=== PATIENT | male | born 1960 | race Caucasian/White ===

== ENCOUNTER 2018-10-04 17:52 | Emergency (ER) | payer MEDICAID ==
--- NOTE | 2018-10-04 18:16 | EDM.PDOC ---
ED HPI GENERAL MEDICAL PROBLEM - General Chief Complaint: Laceration Stated Complaint: VIA NORTH/FELL Time Seen by Provider: 10/04/18 17:59 Source of Information: Reports: Patient, RN Notes Reviewed History Limitations: Reports: No Limitations - History of Present Illness INITIAL COMMENTS - FREE TEXT/NARRATIVE: 58-year-old gentleman brought in by EMS services he does admit to consuming alcohol today he had a fall at home on his deck he is not sure exactly what happened he is experiencing facial pain he believes he probably had a loss of consciousness but cannot recall the details there is no nausea no vomiting complaints and no other pain - Related Data Allergies Allergy/AdvReac Type Severity Reaction Status Date / Time No Known Allergies Allergy Verified 07/16/18 11:22 Home Meds: Home Meds Albuterol [Ventolin HFA] 2 puff INH Q4H PRN 07/16/18 [History] Amphetamine/Dextroamphetamine [Adderall XR] 20 mg PO DAILY 07/16/18 [History] Azelastine [Astelin Nasal Soln] 1 spray CHUY BID 07/16/18 [History] Cetirizine [ZyrTEC] 1 tab PO BID 07/16/18 [History] Fluticasone Furoate [Arnuity Ellipta] 1 puff INH DAILY 07/16/18 [History] Folic Acid 20 mg PO DAILY 07/16/18 [History] Ibuprofen 200 mg PO Q6H PRN 07/16/18 [History] Losartan Potassium [Cozaar] 50 mg PO DAILY 07/16/18 [History] Mirtazapine [Remeron] 1 tab PO DAILY 07/16/18 [History] Montelukast [Singulair] 1 tab PO DAILY 07/16/18 [History] Multivitamin with Minerals [Multiple Vitamin] 1 tab PO DAILY 07/16/18 [History] Pyridoxine HCl (Vitamin B6) [Pyridoxine HCl] 50 mg PO DAILY 07/16/18 [History] Thiamine [Vitamin B-1] 100 mg PO DAILY 07/16/18 [History] Triamcinolone Aceton/0.9% NaCl [Triamcinolone Acet 50 mg/ml Vl] 2 spray CHUY DAILY 07/16/18 [History] Venlafaxine [Effexor XR] 1 cap PO DAILY 07/16/18 [History] Vitamin B Complex [B Complex] 1 tab PO DAILY 07/16/18 [History] busPIRone HCl [Buspirone HCl] 1 tab PO BID 07/16/18 [History] hydroCHLOROthiazide [Hydrochlorothiazide] 1 tab PO DAILY 07/16/18 [History] traZODone 1.5 tab PO DAILY 07/16/18 [History] Past Medical History Psychiatric History: Reports: Addiction, Anxiety Social & Family History - Tobacco Use Smoking Status *Q: Unknown Ever Smoked - Caffeine Use Caffeine Use: Reports: Coffee, Soda - Recreational Drug Use Recreational Drug Use: No ED ROS GENERAL - Review of Systems Review Of Systems: See Below Constitutional: Reports: No Symptoms HEENT: Reports: Other (Facial pain) Respiratory: Reports: No Symptoms Cardiovascular: Reports: No Symptoms GI/Abdominal: Reports: No Symptoms : Reports: No Symptoms Musculoskeletal: Reports: No Symptoms Skin: Reports: No Symptoms ED EXAM, SKIN/RASH Exam: See Below Text/Narrative:: Primary survey, obvious intoxication GCS of 15 airway is open patent and clear lungs are clear to auscultation bilaterally and cardiovascular demonstrates a regular rate and rhythm S1-S2 Secondary surveyGeneral: Male, not in any distress, alert and oriented x3 HEENT: head is 2 cm lacerations appreciated above the right fine there is also superficial abrasion anterior to the right ear normocephalic, eyes pupils equal round reactive to light, sclera clear no conjunctivitis appreciated, extraocular eye movements intact. Ears tympanic membranes clear and marroquin landmarks and light reflex are present bilaterally canals are clear. Nose no septal deviation, nares are clear, no blood present. Mouth mucosa is moist and pink no erythema or exudate noted in soft palate, tongue is midline uvula is midline, dentition is intact. Neck: Supple no thyromegaly no tracheal deviation. NO posterior midline C-spine tenderness Positive for evidence of intoxication GCS > 14 No focal neurological deficit NO distracting injury Nodes: Cervical nodes subclavicular nodes nontender no palpable lymphadenopathy noted. Lungs: clear to auscultation bilaterally with symmetrical respirations, no adventitious noise appreciated. CV: Regular rate and rhythm S1 and S2 appreciated no murmurs rubs or gallops noted. Abdomen: Soft, nontender, no palpable masses or organomegaly appreciated, no distention no guarding bowel sounds are present. Neuro: GCS 15 Skin: Warm and dry, intact Extremities: No lower extremity edema appreciated, no tenderness shoulders elbows wrists bilaterally pelvic rock is negative no tenderness to knees or ankles bilaterally. ED SKIN PROCEDURES - Laceration/Wound Repair Right Face Lac/Wound length In cm: 1.5 Appearance: Subcutaneous, Linear Distal NVT: Neuro & Vascular Intact, No Tendon Injury Anesthetic Type: Local Local Anesthesia - Lidocaine (Xylocaine): 1% with EPI Local Anesthetic Volume: 1cc Skin Prep: Saline Saline Irrigation (cc's): 60 Exploration/Debridement/Repair: Wound Explored, In a Bloodless Field, Explored to Base Closed with: Sutures Suture Size: other (5-0) # of Sutures: 1 Suture Type: Prolene, Running Suture Size: other (5-0) # of Sutures: 1 Repaired with: Vicryl Sterile Dressing Applied: Nurse Tetanus Status Addressed: Yes Complications: No Course - Vital Signs Last Recorded V/S: Last Vital Signs Temp 97.6 F 10/04/18 18:05 Pulse 99 10/04/18 18:05 Resp 22 H 10/04/18 18:05 BP 135/84 10/04/18 18:05 Pulse Ox 94 L 10/04/18 18:05 - Orders/Labs/Meds Orders: Active Orders 24 hr Category Date Time Status Max Facial Sinus wo Cont [CT] Stat Exams 10/04/18 18:11 Taken Meds: Medications Discontinued Medications Generic Name Dose Route Start Last Admin Trade Name Freq PRN Reason Stop Dose Admin Bacitracin 1 dose 10/04/18 18:45 10/04/18 18:58 Bacitracin Oint 1 Gm TOP 10/04/18 18:46 1 dose ONETIME ONE Administration Lidocaine/Epinephrine 20 ml 10/04/18 18:45 10/04/18 18:58 Xylocaine 1% With Epinephrine 1:100,000 SUBCUT 10/04/18 18:46 20 ml NOW STA Administration Departure - Departure Time of Disposition: 19:45 Disposition: Home, Self-Care 01 Condition: Fair Clinical Impression: Eyebrow laceration Qualifiers: Encounter type: initial encounter Laterality: right Qualified Code(s): S01.111A - Laceration without foreign body of right eyelid and periocular area, initial encounter Head injury Qualifiers: Encounter type: initial encounter Qualified Code(s): S09.90XA - Unspecified injury of head, initial encounter - Discharge Information Referrals: Elizabeth Meyers PA-C [Primary Care Provider] - Forms: ED Department Discharge Additional Instructions: Suture removal in 3-4 days follow-up primary care return to the emergency department follow wound care instruction sheet - My Orders Last 24 Hours: My Active Orders 10/04/18 18:11 Max Facial Sinus wo Cont [CT] Stat - Assessment/Plan Last 24 Hours: My Active Orders 10/04/18 18:11 Max Facial Sinus wo Cont [CT] Stat Plan: Assessment Acuity = acute Site and laterality = 1.5 cm laceration above the eyebrow completely through the dermis, 1 cm laceration right side of cheek Etiology = status post trauma Manifestations = none Location of injury = Home Lab values = CT scan had maxillofacial bones and neck negative for any fracture Plan Suture removal in 3-4 days follow-up primary care return to the emergency department follow wound care instruction sheet This note was dictated using [employer] voice recognition software please call with any questions on syntax or grammar.
[2018-10-04] MEDS ORDERED: Bacitracin Oint 1 GM U/D Packet TOP ONE (18:45)
[2018-10-04] MEDS ORDERED: Lidocaine 1% with EPINEPHrine 1:100,000 50 ML MDV SUBCUT STA (18:45)
--- NOTE | 2018-10-04 19:32 | CRLCT ---
INDICATION: Trauma TECHNIQUE: CT head without contrast. COMPARISON: None. FINDINGS: CSF spaces: Within normal limits for age. Brain parenchyma: The marroquin-white differentiation is normal. No sign of mass, hemorrhage, or midline shift. Skull base and calvarium: No skull fractures. Frontal scalp hematoma. Atherosclerosis. IMPRESSION: Frontal scalp hematoma without evidence of calvarial fracture or intracranial bleed. Please note that all CT scans at this facility use dose modulation, iterative reconstruction, and/or weight-based dosing when appropriate to reduce radiation dose to as low as reasonably achievable. Dictated by Randal Taylor MD @ Oct 04 2018 7:27PM Signed by Dr. Randal Taylor @ Oct 04 2018 7:31PM
--- NOTE | 2018-10-04 19:40 | CRLCT ---
INDICATION: Trauma TECHNIQUE: CT cervical spine without contrast. COMPARISON: None FINDINGS: Vertebrae: Alignment is normal. There are no fractures or suspicious bony lesions. Discs and facet joints: Facet hypertrophy C2-3 without significant stenosis. Facet hypertrophy C3-4 with mild right foraminal stenosis. Facet hypertrophy C4-5 without significant stenosis. Disc space narrowing, posterior osteophytes and facet hypertrophy at C5-6 with mild right foraminal stenosis. Facet hypertrophy C6-7 without significant stenosis. Facet hypertrophy C7-T1 without significant stenosis. Extraspinal findings: Prevertebral soft tissues, visualized airway, and visualized lungs are unremarkable. IMPRESSION: Multilevel degenerative disc disease without evidence of cervical spine fracture. Please note that all CT scans at this facility use dose modulation, iterative reconstruction, and/or weight-based dosing when appropriate to reduce radiation dose to as low as reasonably achievable. Dictated by Randal Taylor MD @ Oct 04 2018 7:27PM Signed by Dr. Randal Taylor @ Oct 04 2018 7:40PM
--- NOTE | 2018-10-04 19:45 | CRLCT ---
INDICATION: Facial injury TECHNIQUE: CT maxillofacial without contrast. COMPARISON: None FINDINGS: Facial bones: No evidence of fracture. Orbits and globes: Unremarkable. Globes are intact. No sign of intraorbital hemorrhage or emphysema. Sinuses: Trace mucosal thickening paranasal sinuses. Soft tissues: Frontal scalp hematoma with small subcutaneous air consistent with a scalp laceration. IMPRESSION: Frontal scalp hematoma without evidence of facial fracture. Please note that all CT scans at this facility use dose modulation, iterative reconstruction, and/or weight-based dosing when appropriate to reduce radiation dose to as low as reasonably achievable. Dictated by Randal Taylor MD @ Oct 04 2018 7:27PM Signed by Dr. Randal Taylor @ Oct 04 2018 7:42PM
== END 2018-10-04 19:50 | disposition home or self-care (01) ==
LOC: JP.ED 17:52
DX: S01.111A Laceration without foreign body of right eyelid and periocular area, initial encounter (principal); S01.411A Laceration without foreign body of right cheek and temporomandibular area, initial encounter; Z79.899 Other long term (current) drug therapy; W19.XXXA Unspecified fall, initial encounter; Y92.009 Unspecified place in unspecified non-institutional (private) residence as the place of occurrence of the external cause
CPT/HCPCS: 12011; 70450; 70486; 72125; 99283-25

== ENCOUNTER 2018-10-08 18:16 | Emergency (ER) | payer MEDICAID ==
--- NOTE | 2018-10-08 18:58 | EDM.PDOC ---
ED HPI GENERAL MEDICAL PROBLEM - General Chief Complaint: Wound Recheck Stated Complaint: REMOVE STITCHES Time Seen by Provider: 10/08/18 18:45 Source of Information: Reports: Patient, Old Records History Limitations: Reports: No Limitations - History of Present Illness INITIAL COMMENTS - FREE TEXT/NARRATIVE: 58 yo male had stitches placed in his face here on Thursday. Here now for suture removal. Has no concerns. Onset: Sudden Onset Date: 10/04/18 Duration: Day(s):, Improving Location: Reports: Face Quality: Reports: Other (no pain) Severity: Mild Improves with: Reports: Other (time) Worsens with: Reports: None Context: Reports: Trauma Associated Symptoms: Reports: No Other Symptoms Treatments FORGING ENGINEER: Reports: Other (see below) (neosporin) - Related Data Allergies Allergy/AdvReac Type Severity Reaction Status Date / Time No Known Allergies Allergy Verified 10/08/18 18:40 Home Meds: Home Meds Albuterol [Ventolin HFA] 2 puff INH Q4H PRN 07/16/18 [History] Amphetamine/Dextroamphetamine [Adderall XR] 20 mg PO DAILY 07/16/18 [History] Azelastine [Astelin Nasal Soln] 1 spray CHUY BID 07/16/18 [History] Cetirizine [ZyrTEC] 1 tab PO BID 07/16/18 [History] Fluticasone Furoate [Arnuity Ellipta] 1 puff INH DAILY 07/16/18 [History] Folic Acid 20 mg PO DAILY 07/16/18 [History] Ibuprofen 200 mg PO Q6H PRN 07/16/18 [History] Losartan Potassium [Cozaar] 50 mg PO DAILY 07/16/18 [History] Mirtazapine [Remeron] 1 tab PO DAILY 07/16/18 [History] Montelukast [Singulair] 1 tab PO DAILY 07/16/18 [History] Multivitamin with Minerals [Multiple Vitamin] 1 tab PO DAILY 07/16/18 [History] Pyridoxine HCl (Vitamin B6) [Pyridoxine HCl] 50 mg PO DAILY 07/16/18 [History] Thiamine [Vitamin B-1] 100 mg PO DAILY 07/16/18 [History] Triamcinolone Aceton/0.9% NaCl [Triamcinolone Acet 50 mg/ml Vl] 2 spray CHUY DAILY 07/16/18 [History] Venlafaxine [Effexor XR] 1 cap PO DAILY 07/16/18 [History] Vitamin B Complex [B Complex] 1 tab PO DAILY 07/16/18 [History] busPIRone HCl [Buspirone HCl] 1 tab PO BID 07/16/18 [History] hydroCHLOROthiazide [Hydrochlorothiazide] 1 tab PO DAILY 07/16/18 [History] traZODone 1.5 tab PO DAILY 07/16/18 [History] Past Medical History - Past Health History Medical/Surgical History: Denies Medical/Surgical History Respiratory History: Reports: Asthma Psychiatric History: Reports: Addiction, Anxiety Social & Family History - Tobacco Use Smoking Status *Q: Former Smoker Years of Tobacco use: 10 Packs/Tins Daily: 0.5 Used Tobacco, but Quit: Yes Month/Year Tobacco Last Used: 10 years ago Second Hand Smoke Exposure: No - Caffeine Use Caffeine Use: Reports: Coffee Other Caffeine Use: 4 to 6 cups per day - Recreational Drug Use Recreational Drug Use: No ED ROS GENERAL - Review of Systems Review Of Systems: See Below Constitutional: Reports: No Symptoms Skin: Reports: Wound (healing normally) Neurological: Reports: No Symptoms ED EXAM, SKIN/RASH Exam: See Below Exam Limited By: No Limitations General Appearance: Alert, WD/WN, No Apparent Distress Eye Exam: Bilateral Eye: Normal Inspection, PERRL Ears: Hearing Grossly Normal Nose: Normal Inspection, No Blood Throat/Mouth: Normal Voice, No Airway Compromise Neurological: Alert, Oriented, CN II-XII Intact, Normal Cognition, No Motor/ Sensory Deficits Psychiatric: Normal Affect, Normal Mood Skin: Warm, Dry, Normal Color, No Rash, Wound/Incision (Adequate healing for suture removal) Location, Skin: Face (R side in front of ear and to L cheek below the eye) Characteristics: Linear Associated features: No: Warmth, Tenderness, Swelling, Induration, Lymphangitis ED WOUND PROCEDURES - Additional/Other Procedure(s) Other (Free Text) Procedure(s): Sutures removed with suture removal kit. Course - Vital Signs Last Recorded V/S: Last Vital Signs Temp 37.2 C 10/08/18 18:40 Pulse 92 10/08/18 18:40 Resp 16 10/08/18 18:40 BP 149/100 H 10/08/18 18:40 Pulse Ox 99 10/08/18 18:40 Departure - Departure Time of Disposition: 18:57 Disposition: Home, Self-Care 01 Condition: Good Clinical Impression: Visit for suture removal - Discharge Information Referrals: Elizabeth Meyers PA-C [Primary Care Provider] - Additional Instructions: Clean wound twice daily with 1/2 water and 1/2 peroxide. Dry. Apply antibiotic ointment. Recheck as needed.
== END 2018-10-08 19:05 | disposition home or self-care (01) ==
LOC: JP.ED 18:16
DX: S01.111D Laceration without foreign body of right eyelid and periocular area, subsequent encounter (principal); W19.XXXD Unspecified fall, subsequent encounter
CPT/HCPCS: 99281

== ENCOUNTER 2019-12-14 14:09 | Emergency (ER) | payer MEDICAID ==
[2019-12-14] MEDS ORDERED: Ketorolac 60 MG/2 ML SDV IM ONE (15:09)
--- NOTE | 2019-12-14 15:11 | EDM.PDOC ---
<Carmen Winslow - Last Filed: 12/14/19 15:51> ED HPI GENERAL MEDICAL PROBLEM - General Chief Complaint: General Stated Complaint: SENT FROM CLINIC,PATIENT UNSURE WHAT FOR Time Seen by Provider: 12/14/19 15:05 Source of Information: Reports: Patient, Old Records, RN, RN Notes Reviewed History Limitations: Reports: No Limitations - History of Present Illness INITIAL COMMENTS - FREE TEXT/NARRATIVE: Pt here as a recommendation of Toma John for continuance of cervical and vertebral tenderness post CT, MRI, and NIRU's. Pt c/o pain, tingling, sharp, stabbing, and burning pain that comes and goes in BLUE, BLLE, back, and cervical tenderness since August 2019 due to job related injury. Pt is being followed by Elizabeth Meyers PA-C and the pain clinic for steroid injection(s). Pain today is constant at 8/10. Indicates have used Icy Hot patches, ice, Tylenol, and prescribed muscle relaxants. The muscle relaxants are not tolerated by pt as "they knock him out" and he is not able to conduct normal daily activities. Pt indicates the clinic has ordered PT and has been going for 6-7 weeks with no relief. History of head trauma a year ago or so from a fall into a garbage dumpster that required sutures. Unknown complications as pt was not able to recall the event in its entirety. Pt is lying on stretcher in no visual distress and able to give an appropriate history. Onset: Gradual Onset Date: 08/10/19 Duration: Week(s):, Chronic, Getting Worse Location: Reports: Back, Upper Extremity, Left, Upper Extremity, Right (Stingling and weakness), Lower Extremity, Left, Lower Extremity, Right Quality: Reports: Ache, Burning, Sharp (Tingling ), Stabbing Severity: Severe Improves with: Reports: None Worsens with: Reports: None Lower Back Pain Score (Numeric/FACES): 8 - Related Data Allergies Allergy/AdvReac Type Severity Reaction Status Date / Time No Known Allergies Allergy Verified 12/07/19 13:08 Home Meds: Home Meds Albuterol [Ventolin HFA] 2 puff INH Q4H PRN 07/16/18 [History] Amphetamine/Dextroamphetamine [Adderall XR] 20 mg PO DAILY 07/16/18 [History] Azelastine [Astelin Nasal Soln] 1 spray CHUY BID 07/16/18 [History] Cetirizine [ZyrTEC] 1 tab PO BID 07/16/18 [History] Fluticasone Furoate [Arnuity Ellipta] 1 puff INH DAILY 07/16/18 [History] Folic Acid 20 mg PO DAILY 07/16/18 [History] Ibuprofen 200 mg PO Q6H PRN 07/16/18 [History] Losartan Potassium [Cozaar] 50 mg PO DAILY 07/16/18 [History] Mirtazapine [Remeron] 45 tab PO BEDTIME 07/16/18 [History] Montelukast [Singulair] 1 tab PO DAILY 07/16/18 [History] Multivitamin with Minerals [Multiple Vitamin] 1 tab PO DAILY 07/16/18 [History] Triamcinolone Aceton/0.9% NaCl [Triamcinolone Acet 50 mg/ml Vl] 2 spray CHUY DAILY 07/16/18 [History] Vitamin B Complex [B Complex] 1 tab PO DAILY 07/16/18 [History] busPIRone HCl [Buspirone HCl] 30 tab PO BID 07/16/18 [History] hydroCHLOROthiazide [Hydrochlorothiazide] 1 tab PO DAILY 07/16/18 [History] traZODone 1.5 tab PO DAILY 07/16/18 [History] Celecoxib 100 mg PO BID 12/14/19 [History] Cyclobenzaprine [Flexeril] 10 mg PO TID 12/14/19 [History] Fluticasone Furoate [Arnuity Ellipta] 1 puff INH DAILY 12/14/19 [History] Magnesium 400 mg PO BEDTIME PRN 12/14/19 [History] Naltrexone 50 mg PO DAILY 12/14/19 [History] Omeprazole 20 mg PO DAILY 12/14/19 [History] QUEtiapine [SEROquel] 25 mg PO DAILY 12/14/19 [History] Past Medical History - Past Health History Medical/Surgical History: Denies Medical/Surgical History Respiratory History: Reports: Asthma Musculoskeletal History: Reports: Back Pain, Chronic Psychiatric History: Reports: Addiction, Anxiety Social & Family History - Tobacco Use Smoking Status *Q: Never Smoker - Caffeine Use Caffeine Use: Reports: None Other Caffeine Use: 4 to 6 cups per day - Alcohol Use Days Per Week of Alcohol Use: 7 Number of Drinks Per Day: 3 Total Drinks Per Week: 21 - Recreational Drug Use Recreational Drug Use: No ED ROS GENERAL - Review of Systems Review Of Systems: See Below Constitutional: Reports: No Symptoms HEENT: Reports: No Symptoms Respiratory: Reports: No Symptoms Cardiovascular: Reports: No Symptoms Endocrine: Reports: No Symptoms GI/Abdominal: Reports: No Symptoms : Reports: No Symptoms Musculoskeletal: Reports: Other (Low back/pelvis, BLUE and BLLE ) Skin: Reports: No Symptoms Neurological: Reports: Headache, Numbness, Tingling, Difficulty Walking, Weakness Psychiatric: Reports: No Symptoms Hematologic/Lymphatic: Reports: No Symptoms Immunologic: Reports: No Symptoms ED EXAM, GENERAL - Physical Exam Exam: See Below Exam Limited By: No Limitations General Appearance: Alert, Mild Distress Eye Exam: Bilateral Eye: Normal Inspection, PERRL Head: Normocephalic Neck: Normal Inspection, Supple (Cervical tenderness C4-6 preixisting ) Respiratory/Chest: No Respiratory Distress Cardiovascular: Normal Peripheral Pulses, Regular Rate, Rhythm, No Murmur, No Rub Peripheral Pulses: 2+: Radial (L), Radial (R), Posterior Tibial (L), Posterior Tibial (R) GI/Abdominal: Normal Bowel Sounds, Soft, Non-Tender, No Distention (Male) Exam: Deferred Rectal (Males) Exam: Deferred Back Exam: Decreased Range of Motion, Vertebral Tenderness Extremities: Limited Range of Motion (BLUE and BLLE weakness. BLUE 2/5. BLLE 4/5. ) Neurological: Alert, Oriented, Normal Cognition Psychiatric: Normal Affect, Normal Mood Skin Exam: Warm, Dry, Intact, Normal Color, No Rash Lymphatic: No Adenopathy Course - Re-Assessments/Exams Free Text/Narrative Re-Assessment/Exam: 12/14/19 15:14 Examined pt. Motor strength BLUE 2/5 and BLLE 4/5. C/O headache, cervical and vertebral tenderness. PERLL. Will give Toradol IM and scan head CT. 12/14/19 15:41 CT done 12/14/19 15:51 Ct dictated. Neg findings. Departure - Departure Time of Disposition: 15:52 Disposition: Home, Self-Care 01 Condition: Good Clinical Impression: Pain, Acute exacerbation of chronic low back pain - Discharge Information *PRESCRIPTION DRUG MONITORING PROGRAM REVIEWED*: Not Applicable *COPY OF PRESCRIPTION DRUG MONITORING REPORT IN PATIENT ANT: Not Applicable Instructions: How to Use Cold Therapy, Acute Pain, Adult Referrals: Elizabeth Meyers PA-C [Primary Care Provider] - Forms: ED Department Discharge Additional Instructions: The CT of your head was negative for any bleeding or acute changes. Please follow up with the Pain Clinic or Dina Meyers PA-C for further care. Sepsis Event Note (ED) - Evaluation Sepsis Screening Result: No Definite Risk - Problem List Review Problem List Initiated/Reviewed/Updated: Yes - Assessment/Plan Assessment:: The CT of your head was negative for any bleeding or acute changes. Please follow up with the Pain Clinic or Dina Meyers PA-C for further care. <Conrado Escalera - Last Filed: 12/16/19 07:54> Course - Vital Signs Last Recorded V/S: Last Vital Signs Temp 97.2 F 12/14/19 14:36 Pulse 102 H 12/14/19 14:36 Resp 16 12/14/19 14:36 BP 134/83 12/14/19 14:36 Pulse Ox 97 12/14/19 14:36 - Orders/Labs/Meds Meds: Medications Discontinued Medications Generic Name Dose Route Start Last Admin Trade Name Freq PRN Reason Stop Dose Admin Ketorolac Tromethamine 60 mg 12/14/19 15:09 12/14/19 15:16 Toradol IM 12/14/19 15:10 60 mg ONETIME ONE Administration Departure - Departure Time of Disposition: 16:25 Attestation - Student - Attestation Statement Attestation Statement: I personally performed or re-performed the physical examination and medical decision making. I have verified all student documentation or findings, including history, physical exam and/or medical decision making.
--- NOTE | 2019-12-14 15:49 | CT ---
Head wo Cont CLINICAL HISTORY: Upper and lower extremity weakness COMPARISON: 2019 TECHNIQUE: Transverse scans were obtained from the base of the skull through the vertex without IV contrast on a multislice, multidetector CT scanner. Auto dosage reduction and iterative reconstruction techniques employed. FINDINGS: No focal abnormal parenchymal density is identified. There is no mass effect, hemorrhage, or extraaxial collection. The basal cisterns and sulci over the convexities are prominent. The ventricles are prominent. There is a slight increase in size since 2019 IMPRESSION: No focal lesion hemorrhage or mass effect Generalized atrophic changes Mild ventriculomegaly which has increased slightly since 2019. This may represent progression of atrophic changes normal pressure hydrocephalus is not excluded
== END 2019-12-14 16:15 | disposition home or self-care (01) ==
LOC: JP.ED 14:09
DX: M54.5 Low back pain (principal); G89.29 Other chronic pain; J45.909 Unspecified asthma, uncomplicated; F41.9 Anxiety disorder, unspecified; Z79.899 Other long term (current) drug therapy
CPT/HCPCS: 70450; 96372; 99283; J1885

== ENCOUNTER 2021-09-19 09:26 | Day surgery (SDC) | payer MEDICAID ==
[2021-09-19] MEDS ORDERED: Sodium Chloride 0.9% 1,000 ML IV SCH (10:00)
[2021-09-19] MEDS ORDERED: Propofol 200 MG/20 ML SDV ONE ×2 (10:02→10:39)
[2021-09-19] MEDS ORDERED: fentaNYL 100 MCG/2 ML SDV ONE (10:02)
[2021-09-19] MEDS ORDERED: Midazolam 1 MG/ML 2 ML SDV ONE (10:02)
== END 2021-09-19 11:52 | disposition home or self-care (01) ==
LOC: JP.SDS 09:26
PROVIDERS: ATTEND Surgery
DX: Z12.11 Encounter for screening for malignant neoplasm of colon (principal); K57.30 Diverticulosis of large intestine without perforation or abscess without bleeding; K20.90 Esophagitis, unspecified without bleeding; I10 Essential (primary) hypertension
CPT/HCPCS: J2250; J2704; J3010; J7030

== ENCOUNTER 2022-10-16 14:36 | Emergency (ER) | payer MEDICAID ==
[2022-10-16 15:08] LABS: BASOPHILS PERCENT AUTO 0.4 % (0.1-1.3); EOSINOPHILS PERCENT AUTO 0.2 % (0.0-5.4); HEMATOCRIT 40.5 % (38.4-49.7); HEMOGLOBIN 14.4 g/dL (12.9-16.9); IMMATURE GRAN ABSOLUTE AUTO 0.05 K/uL (0.00-0.23); IMMATURE GRAN PERCENT AUTO 0.9 % (0.0-0.7); LYMPHOCYTES ABSOLUTE AUTO 0.94 K/uL (0.8-3.3); LYMPHOCYTES PERCENT AUTO 16.7 % (11.4-47.7); MEAN CORPUSCULAR HEMOGLOBIN 31.6 pg (31.6-35.5); MEAN CORPUSCULAR HGB CONC 35.6 g/dL (31.6-35.5); MEAN CORPUSCULAR VOLUME 88.8 fL (81.4-99.0); MONOCYTES PERCENT AUTO 10.6 % (3.3-12.6); NEUTROPHILS ABSOLUTE AUTO 4.02 K/uL (1.0-7.6); NEUTROPHILS PERCENT AUTO 71.2 % (40.0-78.1); PLATELET COUNT,PLT 111 K/uL (130-375); RED BLOOD CELL COUNT 4.56 M/uL (4.14-5.76); WHITE BLOOD CELL COUNT,WBC 5.6 K/uL (3.2-11.0)
[2022-10-16 15:09] LABS: BASOPHILS ABSOLUTE AUTO 0.02 K/uL (0.00-0.10); EOSINOPHILS ABSOLUTE AUTO 0.01 K/uL (0.00-0.40)
[2022-10-16] MEDS ORDERED: Aspirin 81 MG Tab.Chew PO ONE (15:16)
[2022-10-16 15:30] LABS: PROTHROMBIN TIME 10.4 sec (9.2-10.6)
[2022-10-16] MEDS ORDERED: Sodium Chloride 0.9% 1,000 ML IV SCH (15:30)
[2022-10-16 15:33] LABS: A/G RATIO 0.8 (1.2-2.2); ALANINE AMINOTRANSFERASE,ALT 61 U/L (12-78); ALBUMIN 3.3 g/dL (3.4-5.0); ALKALINE PHOSPHATASE 75 U/L (46-116); ASPARTATE AMNIOTRANSFERASE,AST 86 U/L (15-37); BILIRUBIN TOTAL 0.9 mg/dL (0.2-1.0); BLOOD UREA NITROGEN,BUN 27 mg/dL (7-18); CALCIUM 8.8 mg/dL (8.5-10.1); CARBON DIOXIDE,CO2 26 mmol/L (21-32); CHLORIDE,CL 97 mmol/L (100-108); CREATININE 2.5 mg/dL (0.8-1.3); ESTIMATED GFR 29 mL/min (>60); GLUCOSE RANDOM 156 mg/dL (74-106); MAGNESIUM 2.2 mg/dL (1.8-2.4); POTASSIUM,K 3.8 mmol/L (3.6-5.2); PRO B-TYPE NATRIUR PEPT,BNPPRO 263 pg/mL (5-125); PROTEIN TOTAL,TP 7.3 g/dL (6.4-8.2); SODIUM,NA 132 mmol/L (140-148); TROPONIN I HIGH SENSITIVITY 20.8 pg/mL (<=60.3)
[2022-10-16 15:35] LABS: ANION GAP 12.8 mmol/L (5.0-14.0)
[2022-10-16] MEDS ORDERED: Iopamidol 755 Mg/ML 100 ML Bottle IV ONE (16:12)
[2022-10-16] MEDS ORDERED: Sodium Chloride 0.9% 75 ML IV ONE (16:12)
[2022-10-16] MEDS ORDERED: Sodium Chloride 0.9% 10 ML Syringe FLUSH ONE (16:12)
== END 2022-10-16 18:43 | disposition home or self-care (01) ==
LOC: JP.ED 14:36
DX: I95.89 Other hypotension (principal); E86.1 Hypovolemia; I10 Essential (primary) hypertension; J45.909 Unspecified asthma, uncomplicated; Z79.899 Other long term (current) drug therapy
CPT/HCPCS: 36415; 71045; 71275; 80053; 82947; 83605; 83735; 83880; 84484; 85025; 85379; 85610; 93005; 96360; 96361; 99285; A9270; J3490; J7030; Q9967

== ENCOUNTER 2022-12-05 10:43 | Inpatient (IN) | payer MEDICARE, MEDICAID ==
[2022-12-05] MEDS ORDERED: Sodium Chloride 0.9% 10 ML Syringe FLUSH PRN (13:49)
[2022-12-05 13:57] LABS: BASOPHILS PERCENT AUTO 0.2 % (0.1-1.3); EOSINOPHILS PERCENT AUTO 0.2 % (0.0-5.4); HEMATOCRIT 44.8 % (38.4-49.7); HEMOGLOBIN 15.5 g/dL (12.9-16.9); IMMATURE GRAN ABSOLUTE AUTO 0.05 K/uL (0.00-0.23); IMMATURE GRAN PERCENT AUTO 0.6 % (0.0-0.7); LYMPHOCYTES ABSOLUTE AUTO 1.23 K/uL (0.8-3.3); LYMPHOCYTES PERCENT AUTO 14.5 % (11.4-47.7); MEAN CORPUSCULAR HEMOGLOBIN 31.3 pg (31.6-35.5); MEAN CORPUSCULAR HGB CONC 34.6 g/dL (31.6-35.5); MEAN CORPUSCULAR VOLUME 90.5 fL (81.4-99.0); MONOCYTES ABSOLUTE AUTO 0.77 K/uL (0.20-0.90); MONOCYTES PERCENT AUTO 9.1 % (3.3-12.6); NEUTROPHILS ABSOLUTE AUTO 6.39 K/uL (1.0-7.6); NEUTROPHILS PERCENT AUTO 75.4 % (40.0-78.1); PLATELET COUNT,PLT 225 K/uL (130-375); RED BLOOD CELL COUNT 4.95 M/uL (4.14-5.76); WHITE BLOOD CELL COUNT,WBC 8.5 K/uL (3.2-11.0)
[2022-12-05 13:58] LABS: BASOPHILS ABSOLUTE AUTO 0.02 K/uL (0.00-0.10); EOSINOPHILS ABSOLUTE AUTO 0.02 K/uL (0.00-0.40)
[2022-12-05] MEDS ORDERED: Sodium Chloride 0.9% 1,000 ML IV SCH (14:00)
[2022-12-05 14:19] LABS: ALANINE AMINOTRANSFERASE,ALT 45 U/L (12-78); ALBUMIN 3.7 g/dL (3.4-5.0); ALKALINE PHOSPHATASE 79 U/L (46-116); ASPARTATE AMNIOTRANSFERASE,AST 52 U/L (15-37); BILIRUBIN TOTAL 1.1 mg/dL (0.2-1.0); BLOOD UREA NITROGEN,BUN 28 mg/dL (7-18); CALCIUM 9.6 mg/dL (8.5-10.1); CARBON DIOXIDE,CO2 29 mmol/L (21-32); CHLORIDE,CL 99 mmol/L (100-108); CREATININE 1.2 mg/dL (0.8-1.3); EST CRCL DRUG DOSING (CG) 75.16 mL/min; ESTIMATED GFR 69 mL/min (>60); GLUCOSE RANDOM 106 mg/dL (74-106); POTASSIUM,K 3.5 mmol/L (3.6-5.2); PROTEIN TOTAL,TP 7.5 g/dL (6.4-8.2); SODIUM,NA 138 mmol/L (140-148)
[2022-12-05 14:20] LABS: ANION GAP 13.5 mmol/L (5.0-14.0)
[2022-12-05 14:22] LABS: INR 1.1; PROTHROMBIN TIME 10.7 sec (9.2-10.6); PTT,PARTIAL THROMBOPLSTIN TIME 28.8 sec (21.8-27.3)
[2022-12-05 14:47] LABS: TROPONIN I HIGH SENSITIVITY 42.7 pg/mL (<=60.3)
[2022-12-05] MEDS ORDERED: Ketorolac 30 MG/ML SDV IVPUSH ONE (16:38)
[2022-12-05 17:16] LABS: LYME AB IgG Positive (Negative); LYME AB IgM Positive (Negative)
[2022-12-05] MEDS ORDERED: Doxycycline 100 MG Cap PO ONE (17:44)
[2022-12-05] MEDS ORDERED: Acetaminophen 500 MG Tab PO ONE (17:44)
[2022-12-05 18:53] LABS: APPEARANCE,URINE CLEAR (CLEAR); BILIRUBIN,URINE NEGATIVE (NEGATIVE); COLOR,URINE YELLOW (YELLOW); GLUCOSE,URINE NEGATIVE (NEGATIVE); KETONES,URINE 40 mg/dL (NEGATIVE); LEUKOCYTE ESTERASE,URINE NEGATIVE (NEGATIVE); NITRITE,URINE NEGATIVE (NEGATIVE); OCCULT BLOOD,URINE NEGATIVE (NEGATIVE); PROTEIN,URINE TRACE mg/dL (NEGATIVE); UROBILINOGEN,URINE 0.2 EU/dL (0.2-1.0)
[2022-12-05 18:59] LABS: AMORPHOUS SEDIMENT,URINE NOT SEEN; BACTERIA,URINE RARE; EPITHELIAL CELLS,URINE RARE; MUCUS,URINE NOT SEEN; RBC,URINE NOT SEEN (0-5); WBC,URINE NOT SEEN (0-5)
[2022-12-05 19:00] LABS: AMPHETAMINES SCREEN, URINE NEGATIVE (NEGATIVE); BARBITURATE SCREEN,URINE NEGATIVE (NEGATIVE); BENZODIAZEPINES SCREEN,URINE NEGATIVE (NEGATIVE); METHADONE SCREEN, URINE NEGATIVE (NEGATIVE); METHAMPHETAMINES SCREEN, URINE NEGATIVE (NEGATIVE); OXYCODONE SCREEN,URINE NEGATIVE (NEGATIVE); PROPOXYPHENE SCREEN,URINE NEGATIVE (NEGATIVE); THC SCREEN,URINE 50 NG/ML NEGATIVE (NEGATIVE)
[2022-12-05] MEDS ORDERED: Sennosides/Docusate Sodium 50-8.6 MG Tab PO PRN (20:43)
[2022-12-05] MEDS ORDERED: Ondansetron 4 MG/2 ML SDV IV PRN (20:43)
[2022-12-05] MEDS ORDERED: Nicotine Polacrilex 2 MG Gum CHEW PRN (20:43)
[2022-12-05] MEDS ORDERED: Ondansetron 4 MG Tab.DIS PO PRN (20:43)
[2022-12-05] MEDS ORDERED: cefTRIAXone 2 GM in Sodium Chloride 0.9% 50 ML IV ONE (20:43)
[2022-12-05] MEDS ORDERED: Magnesium Hydroxide 400 MG/5 ML Susp 30 ML Cup PO PRN (20:43)
[2022-12-05] MEDS ORDERED: Melatonin 3 MG Tab PO PRN (20:43)
[2022-12-05] MEDS: Sodium Chloride 0.9% 1,000 ML IV SCH (21:25)
[2022-12-05] MEDS: Tamsulosin 0.4 MG Cap.ER PO SCH (21:28)
[2022-12-05] MEDS: Enoxaparin 40 MG/0.4 ML Syringe SUBCUT SCH (21:28)
[2022-12-05] MEDS: Potassium Chloride 20 MEQ Tab.ER PO SCH (21:28)
[2022-12-05] MEDS: Pantoprazole 40 MG Tab.CR PO SCH (21:28)
[2022-12-05] MEDS: Lactobacillus Rhamnosus GG (Probiotic) Cap PO SCH (21:28)
[2022-12-05] MEDS: busPIRone 10 MG Tab PO SCH ×2 (21:47→21:57)
[2022-12-05] MEDS: Mirtazapine 15 MG Tab PO SCH (21:57)
[2022-12-05] MEDS: Celecoxib 100 MG Cap PO SCH (21:57)
[2022-12-05] MEDS: Cyclobenzaprine 10 MG Tab PO SCH (21:57)
[2022-12-05] MEDS: Cetirizine 10 MG Tab PO SCH (21:57)
[2022-12-05] MEDS: Montelukast 10 MG Tab PO SCH (21:58)
[2022-12-05] MEDS: Doxycycline 100 MG in Sodium Chloride 0.9% 100 ML IV SCH (22:19)
[2022-12-06] MEDS: Losartan 25 MG Tab PO SCH ×2 (00:41→09:12)
[2022-12-06] MEDS: traMADol 50 MG Tab PO PRN ×2 (02:06→18:23)
[2022-12-06 05:09] LABS: HEMATOCRIT 41.9 % (38.4-49.7); HEMOGLOBIN 14.4 g/dL (12.9-16.9); MEAN CORPUSCULAR HEMOGLOBIN 31.4 pg (31.6-35.5); MEAN CORPUSCULAR HGB CONC 34.4 g/dL (31.6-35.5); MEAN CORPUSCULAR VOLUME 91.3 fL (81.4-99.0); RED BLOOD CELL COUNT 4.59 M/uL (4.14-5.76); WHITE BLOOD CELL COUNT,WBC 11.3 K/uL (3.2-11.0)
[2022-12-06 05:28] LABS: CALCIUM 8.2 mg/dL (8.5-10.1); CREATININE 0.9 mg/dL (0.8-1.3); EST CRCL DRUG DOSING (CG) 100.21 mL/min; POTASSIUM,K 3.9 mmol/L (3.6-5.2)
[2022-12-06 05:29] LABS: ANION GAP 13.9 mmol/L (5.0-14.0)
[2022-12-06] MEDS: Sodium Chloride 0.9% 1,000 ML IV SCH (05:39)
[2022-12-06] MEDS ORDERED: QUERCETIN DIHYDRATE 1 GM PO SCH (09:00)
[2022-12-06] MEDS ORDERED: Pregabalin 75 MG Cap PO SCH (09:00)
[2022-12-06] MEDS ORDERED: QUEtiapine 25 MG Tab PO SCH (09:00)
[2022-12-06] MEDS: busPIRone 10 MG Tab PO SCH ×2 (09:11→21:04)
[2022-12-06] MEDS: Celecoxib 100 MG Cap PO SCH ×2 (09:12→21:05)
[2022-12-06] MEDS: Lactobacillus Rhamnosus GG (Probiotic) Cap PO SCH ×2 (09:15→21:05)
[2022-12-06] MEDS: Folic Acid 1 MG Tab PO SCH (09:16)
[2022-12-06] MEDS: Cyclobenzaprine 10 MG Tab PO SCH ×2 (09:16→21:04)
[2022-12-06] MEDS: Cetirizine 10 MG Tab PO SCH ×2 (09:17→21:07)
[2022-12-06] MEDS: Atenolol 25 MG Tab PO SCH (09:17)
[2022-12-06] MEDS: Doxycycline 100 MG in Sodium Chloride 0.9% 100 ML IV SCH ×2 (10:56→21:00)
[2022-12-06] MEDS ORDERED: Albuterol 0.083% 2.5 MG/3 ML Neb Soln NEB PRN (15:20)
[2022-12-06] MEDS: Acetaminophen 325 MG Tab PO PRN (18:23)
[2022-12-06] MEDS: Pregabalin 75 MG Cap PO SCH (21:04)
[2022-12-06] MEDS: Tamsulosin 0.4 MG Cap.ER PO SCH (21:04)
[2022-12-06] MEDS: Potassium Chloride 20 MEQ Tab.ER PO SCH (21:05)
[2022-12-06] MEDS: Enoxaparin 40 MG/0.4 ML Syringe SUBCUT SCH (21:05)
[2022-12-06] MEDS: QUEtiapine 25 MG Tab PO SCH (21:06)
[2022-12-06] MEDS: Montelukast 10 MG Tab PO SCH (21:06)
[2022-12-06] MEDS: Mirtazapine 15 MG Tab PO SCH (21:07)
[2022-12-06] MEDS: Pantoprazole 40 MG Tab.CR PO SCH (21:07)
[2022-12-07] MEDS: Pregabalin 75 MG Cap PO SCH ×2 (08:38→21:26)
[2022-12-07] MEDS: Cyclobenzaprine 10 MG Tab PO SCH ×2 (08:39→21:21)
[2022-12-07] MEDS: Losartan 25 MG Tab PO SCH (08:40)
[2022-12-07] MEDS: busPIRone 10 MG Tab PO SCH ×2 (08:40→21:21)
[2022-12-07] MEDS: Celecoxib 100 MG Cap PO SCH ×2 (08:40→21:21)
[2022-12-07] MEDS: Lactobacillus Rhamnosus GG (Probiotic) Cap PO SCH ×2 (08:40→21:21)
[2022-12-07] MEDS: Folic Acid 1 MG Tab PO SCH (08:43)
[2022-12-07] MEDS: QUEtiapine 25 MG Tab PO SCH ×2 (08:43→21:24)
[2022-12-07] MEDS: [UNRECOGNIZED DRUG - OTHER] PO SCH (08:44)
[2022-12-07] MEDS: Cetirizine 10 MG Tab PO SCH ×2 (08:44→21:22)
[2022-12-07] MEDS: Atenolol 25 MG Tab PO SCH (08:44)
[2022-12-07] MEDS: Doxycycline 100 MG in Sodium Chloride 0.9% 100 ML IV SCH ×2 (08:45→21:29)
[2022-12-07] MEDS ORDERED: QUEtiapine 25 MG Tab PO SCH (09:00)
[2022-12-07] MEDS ORDERED: Sodium Chloride 0.9% 10 ML Syringe FLUSH STA (10:04)
[2022-12-07] MEDS ORDERED: Iopamidol 755 Mg/ML 100 ML Bottle IV STA (10:04)
[2022-12-07] MEDS ORDERED: Sodium Chloride 0.9% 100 ML IV STA (10:04)
[2022-12-07] MEDS: Montelukast 10 MG Tab PO SCH (21:22)
[2022-12-07] MEDS: Tamsulosin 0.4 MG Cap.ER PO SCH (21:22)
[2022-12-07] MEDS: Enoxaparin 40 MG/0.4 ML Syringe SUBCUT SCH (21:22)
[2022-12-07] MEDS: Mirtazapine 15 MG Tab PO SCH (21:22)
[2022-12-07] MEDS: Potassium Chloride 20 MEQ Tab.ER PO SCH (21:23)
[2022-12-07] MEDS: Pantoprazole 40 MG Tab.CR PO SCH (21:23)
[2022-12-08] MEDS: traMADol 50 MG Tab PO PRN (01:30)
[2022-12-08 05:43] LABS: HEMATOCRIT 39.3 % (38.4-49.7); HEMOGLOBIN 13.7 g/dL (12.9-16.9); MEAN CORPUSCULAR HEMOGLOBIN 31.2 pg (31.6-35.5); MEAN CORPUSCULAR HGB CONC 34.9 g/dL (31.6-35.5); MEAN CORPUSCULAR VOLUME 89.5 fL (81.4-99.0); RED BLOOD CELL COUNT 4.39 M/uL (4.14-5.76); WHITE BLOOD CELL COUNT,WBC 5.6 K/uL (3.2-11.0)
[2022-12-08 06:01] LABS: A/G RATIO 0.9 (1.2-2.2); ALANINE AMINOTRANSFERASE,ALT 47 U/L (12-78); ALBUMIN 2.9 g/dL (3.4-5.0); ALKALINE PHOSPHATASE 60 U/L (46-116); ASPARTATE AMNIOTRANSFERASE,AST 46 U/L (15-37); BILIRUBIN TOTAL 0.6 mg/dL (0.2-1.0); BLOOD UREA NITROGEN,BUN 20 mg/dL (7-18); C-REACTIVE PROTEIN 5.17 mg/dL (0.0-0.3); CALCIUM 8.5 mg/dL (8.5-10.1); CARBON DIOXIDE,CO2 24 mmol/L (21-32); CHLORIDE,CL 103 mmol/L (100-108); CREATININE 0.8 mg/dL (0.8-1.3); EST CRCL DRUG DOSING (CG) 112.74 mL/min; ESTIMATED GFR 101 mL/min (>60); GLUCOSE RANDOM 105 mg/dL (74-106); POTASSIUM,K 3.6 mmol/L (3.6-5.2); PROTEIN TOTAL,TP 6.3 g/dL (6.4-8.2); SODIUM,NA 137 mmol/L (140-148)
[2022-12-08 06:12] LABS: ANION GAP 13.6 mmol/L (5.0-14.0)
[2022-12-08] MEDS: Atenolol 25 MG Tab PO SCH (08:12)
[2022-12-08] MEDS: Pregabalin 75 MG Cap PO SCH ×2 (08:12→21:07)
[2022-12-08] MEDS: Celecoxib 100 MG Cap PO SCH ×2 (08:12→21:07)
[2022-12-08] MEDS: Cetirizine 10 MG Tab PO SCH ×2 (08:12→21:03)
[2022-12-08] MEDS: Losartan 25 MG Tab PO SCH (08:12)
[2022-12-08] MEDS: [UNRECOGNIZED DRUG - OTHER] PO SCH (08:13)
[2022-12-08] MEDS: QUEtiapine 25 MG Tab PO SCH ×2 (08:13→21:02)
[2022-12-08] MEDS: Lactobacillus Rhamnosus GG (Probiotic) Cap PO SCH ×2 (08:13→21:02)
[2022-12-08] MEDS: busPIRone 10 MG Tab PO SCH ×2 (08:13→21:02)
[2022-12-08] MEDS: Folic Acid 1 MG Tab PO SCH (08:13)
[2022-12-08] MEDS: Cyclobenzaprine 10 MG Tab PO SCH ×2 (08:13→21:04)
[2022-12-08] MEDS: Doxycycline 100 MG in Sodium Chloride 0.9% 100 ML IV SCH (09:00)
[2022-12-08] MEDS ORDERED: cefTRIAXone 2 GM in Sodium Chloride 0.9% 50 ML IV SCH (14:00)
[2022-12-08 15:53] LABS: BODY FLUID TYPE OTH
[2022-12-08] MEDS ORDERED: Gadoteridol 279.3 MG/ML 20 ML SDV IV SCH (16:00)
[2022-12-08 16:02] LABS: PROTEIN,CSF 202.5 mg/dL (15-45)
[2022-12-08 16:06] LABS: LACTATE DEHYDROGENASE,BODY FL 34 IU/L
[2022-12-08] MEDS: cefTRIAXone 2 GM in Sodium Chloride 0.9% 50 ML IV SCH (16:37)
[2022-12-08 16:59] LABS: APPEARANCE CSF CLEAR (CLEAR); COLOR,CSF COLORLESS (COLORLESS); RBC,CSF 4 /ul (0-0); TUBE NUMBER,CSF 4; TUBE VOLUME,CSF 1 mls; WBC,CSF 410 /ul (0-5)
[2022-12-08 17:00] LABS: MONONUCLEAR, CSF 99 % (54-100); POLYMORPHONUCLEAR, CSF 1 % (0-7)
[2022-12-08] MEDS: Sodium Chloride 0.9% 1,000 ML IV SCH (19:09)
[2022-12-08] MEDS: Enoxaparin 40 MG/0.4 ML Syringe SUBCUT SCH (21:01)
[2022-12-08] MEDS: Mirtazapine 15 MG Tab PO SCH (21:02)
[2022-12-08] MEDS: Pantoprazole 40 MG Tab.CR PO SCH (21:03)
[2022-12-08] MEDS: Montelukast 10 MG Tab PO SCH (21:03)
[2022-12-08] MEDS: Potassium Chloride 20 MEQ Tab.ER PO SCH (21:04)
[2022-12-08] MEDS: Tamsulosin 0.4 MG Cap.ER PO SCH (21:05)
[2022-12-09] MEDS: Sodium Chloride 0.9% 1,000 ML IV SCH ×2 (01:43→08:36)
[2022-12-09] MEDS: traMADol 50 MG Tab PO PRN ×2 (05:06→11:12)
[2022-12-09 05:55] LABS: BASOPHILS ABSOLUTE AUTO 0.03 K/uL (0.00-0.10); BASOPHILS PERCENT AUTO 0.6 % (0.1-1.3); EOSINOPHILS ABSOLUTE AUTO 0.05 K/uL (0.00-0.40); EOSINOPHILS PERCENT AUTO 1.1 % (0.0-5.4); HEMOGLOBIN 13.3 g/dL (12.9-16.9); IMMATURE GRAN ABSOLUTE AUTO 0.08 K/uL (0.00-0.23); IMMATURE GRAN PERCENT AUTO 1.7 % (0.0-0.7); LYMPHOCYTES ABSOLUTE AUTO 1.57 K/uL (0.8-3.3); LYMPHOCYTES PERCENT AUTO 33.6 % (11.4-47.7); MEAN CORPUSCULAR HEMOGLOBIN 31.1 pg (31.6-35.5); MEAN CORPUSCULAR HGB CONC 34.1 g/dL (31.6-35.5); MEAN CORPUSCULAR VOLUME 91.3 fL (81.4-99.0); MONOCYTES ABSOLUTE AUTO 0.48 K/uL (0.20-0.90); MONOCYTES PERCENT AUTO 10.3 % (3.3-12.6); NEUTROPHILS ABSOLUTE AUTO 2.46 K/uL (1.0-7.6); NEUTROPHILS PERCENT AUTO 52.7 % (40.0-78.1); PLATELET COUNT,PLT 155 K/uL (130-375); RED BLOOD CELL COUNT 4.27 M/uL (4.14-5.76); WHITE BLOOD CELL COUNT,WBC 4.7 K/uL (3.2-11.0)
[2022-12-09 06:15] LABS: A/G RATIO 0.8 (1.2-2.2); ALANINE AMINOTRANSFERASE,ALT 46 U/L (12-78); ALBUMIN 2.6 g/dL (3.4-5.0); ALKALINE PHOSPHATASE 56 U/L (46-116); ASPARTATE AMNIOTRANSFERASE,AST 39 U/L (15-37); BILIRUBIN TOTAL 0.4 mg/dL (0.2-1.0); BLOOD UREA NITROGEN,BUN 25 mg/dL (7-18); CALCIUM 8.5 mg/dL (8.5-10.1); CARBON DIOXIDE,CO2 26 mmol/L (21-32); CHLORIDE,CL 108 mmol/L (100-108); EST CRCL DRUG DOSING (CG) 90.19 mL/min; ESTIMATED GFR 86 mL/min (>60); GLUCOSE RANDOM 99 mg/dL (74-106); POTASSIUM,K 3.7 mmol/L (3.6-5.2); PROTEIN TOTAL,TP 5.8 g/dL (6.4-8.2); SODIUM,NA 141 mmol/L (140-148)
[2022-12-09] MEDS: Acetaminophen 325 MG Tab PO PRN (06:16)
[2022-12-09] MEDS: Losartan 25 MG Tab PO SCH (08:31)
[2022-12-09] MEDS: busPIRone 10 MG Tab PO SCH ×2 (08:31→20:12)
[2022-12-09] MEDS: Cyclobenzaprine 10 MG Tab PO SCH ×2 (08:32→20:13)
[2022-12-09] MEDS: Lactobacillus Rhamnosus GG (Probiotic) Cap PO SCH ×2 (08:32→20:13)
[2022-12-09] MEDS: QUEtiapine 25 MG Tab PO SCH ×2 (08:32→20:14)
[2022-12-09] MEDS: Folic Acid 1 MG Tab PO SCH (08:32)
[2022-12-09] MEDS: Atenolol 25 MG Tab PO SCH (08:32)
[2022-12-09] MEDS: [UNRECOGNIZED DRUG - OTHER] PO SCH (08:33)
[2022-12-09] MEDS: Cetirizine 10 MG Tab PO SCH ×2 (08:33→20:15)
[2022-12-09] MEDS: Pregabalin 75 MG Cap PO SCH ×2 (08:43→20:28)
[2022-12-09] MEDS: Celecoxib 100 MG Cap PO SCH ×2 (09:01→20:12)
[2022-12-09] MEDS: cefTRIAXone 2 GM in Sodium Chloride 0.9% 50 ML IV SCH (16:52)
[2022-12-09] MEDS: Enoxaparin 40 MG/0.4 ML Syringe SUBCUT SCH (20:12)
[2022-12-09] MEDS: Potassium Chloride 20 MEQ Tab.ER PO SCH (20:13)
[2022-12-09] MEDS: Tamsulosin 0.4 MG Cap.ER PO SCH (20:13)
[2022-12-09] MEDS: Pantoprazole 40 MG Tab.CR PO SCH (20:14)
[2022-12-09] MEDS: Montelukast 10 MG Tab PO SCH (20:15)
[2022-12-09] MEDS: Mirtazapine 15 MG Tab PO SCH (20:15)
[2022-12-10] MEDS: Acetaminophen 325 MG Tab PO PRN (06:54)
[2022-12-10] MEDS: Atenolol 25 MG Tab PO SCH (08:34)
[2022-12-10] MEDS: Cyclobenzaprine 10 MG Tab PO SCH ×2 (08:34→20:20)
[2022-12-10] MEDS: Pregabalin 75 MG Cap PO SCH ×2 (08:34→20:28)
[2022-12-10] MEDS: Folic Acid 1 MG Tab PO SCH (08:35)
[2022-12-10] MEDS: [UNRECOGNIZED DRUG - OTHER] PO SCH (08:35)
[2022-12-10] MEDS: Cetirizine 10 MG Tab PO SCH ×2 (08:35→20:24)
[2022-12-10] MEDS: busPIRone 10 MG Tab PO SCH ×2 (08:35→20:17)
[2022-12-10] MEDS: QUEtiapine 25 MG Tab PO SCH ×2 (08:35→20:19)
[2022-12-10] MEDS: Losartan 25 MG Tab PO SCH (08:35)
[2022-12-10] MEDS: Lactobacillus Rhamnosus GG (Probiotic) Cap PO SCH ×2 (08:35→20:17)
[2022-12-10] MEDS: Celecoxib 100 MG Cap PO SCH ×2 (08:35→20:18)
[2022-12-10] MEDS ORDERED: Gadoteridol 279.3 MG/ML 20 ML SDV IV SCH (14:30)
[2022-12-10] MEDS: cefTRIAXone 2 GM in Sodium Chloride 0.9% 50 ML IV SCH (16:51)
[2022-12-10] MEDS: Mirtazapine 15 MG Tab PO SCH (20:17)
[2022-12-10] MEDS: Enoxaparin 40 MG/0.4 ML Syringe SUBCUT SCH (20:17)
[2022-12-10] MEDS: Potassium Chloride 20 MEQ Tab.ER PO SCH (20:18)
[2022-12-10] MEDS: Tamsulosin 0.4 MG Cap.ER PO SCH (20:18)
[2022-12-10] MEDS: Pantoprazole 40 MG Tab.CR PO SCH (20:18)
[2022-12-10] MEDS: Montelukast 10 MG Tab PO SCH (20:21)
[2022-12-11] MEDS: Pregabalin 75 MG Cap PO SCH ×2 (08:24→20:19)
[2022-12-11] MEDS: busPIRone 10 MG Tab PO SCH ×2 (08:24→20:19)
[2022-12-11] MEDS: Cyclobenzaprine 10 MG Tab PO SCH ×2 (08:25→20:19)
[2022-12-11] MEDS: Lactobacillus Rhamnosus GG (Probiotic) Cap PO SCH ×2 (08:25→20:19)
[2022-12-11] MEDS: Folic Acid 1 MG Tab PO SCH (08:25)
[2022-12-11] MEDS: Celecoxib 100 MG Cap PO SCH ×2 (08:25→20:19)
[2022-12-11] MEDS: Atenolol 25 MG Tab PO SCH ×2 (08:26→08:34)
[2022-12-11] MEDS: Losartan 25 MG Tab PO SCH ×2 (08:26→08:34)
[2022-12-11] MEDS: QUEtiapine 25 MG Tab PO SCH ×2 (08:26→20:20)
[2022-12-11] MEDS: Cetirizine 10 MG Tab PO SCH ×2 (08:26→20:20)
[2022-12-11] MEDS: [UNRECOGNIZED DRUG - OTHER] PO SCH (08:26)
[2022-12-11 13:12] LABS: ALBUMIN 3.7 g/dL (3.9-4.9); CSF IGG INDEX 1.9 (0.0-0.7)
[2022-12-11 15:11] LABS: IGG P18 AB. Present (.); IGG P23 AB. Present (.); IGG P28 AB. Absent (.); IGG P30 AB. Absent (.); IGG P39 AB. Present (.); IGG P41 AB. Present (.); IGG P45 AB. Absent (.); IGG P58 AB. Present (.); IGG P66 AB. Absent (.); IGG P93 AB. Absent (.); IGM P23 AB. Present (.); IGM P39 AB. Present (.); IGM P41 AB. Absent (.); LYME IGG LB INTERP. Positive (.); LYME IGM LB INTERP. Positive (.)
[2022-12-11] MEDS: cefTRIAXone 2 GM in Sodium Chloride 0.9% 50 ML IV SCH (17:12)
[2022-12-11] MEDS: Acetaminophen 325 MG Tab PO PRN (19:15)
[2022-12-11] MEDS: Enoxaparin 40 MG/0.4 ML Syringe SUBCUT SCH (20:18)
[2022-12-11] MEDS: Montelukast 10 MG Tab PO SCH (20:18)
[2022-12-11] MEDS: Potassium Chloride 20 MEQ Tab.ER PO SCH (20:19)
[2022-12-11] MEDS: Mirtazapine 15 MG Tab PO SCH (20:19)
[2022-12-11] MEDS: Tamsulosin 0.4 MG Cap.ER PO SCH (20:19)
[2022-12-11] MEDS: Pantoprazole 40 MG Tab.CR PO SCH (20:19)
[2022-12-12] MEDS: Cyclobenzaprine 10 MG Tab PO SCH ×2 (08:08→20:17)
[2022-12-12] MEDS: Celecoxib 100 MG Cap PO SCH ×2 (08:09→20:18)
[2022-12-12] MEDS: Atenolol 25 MG Tab PO SCH (08:09)
[2022-12-12] MEDS: Lactobacillus Rhamnosus GG (Probiotic) Cap PO SCH ×2 (08:09→20:19)
[2022-12-12] MEDS: [UNRECOGNIZED DRUG - OTHER] PO SCH (08:09)
[2022-12-12] MEDS: QUEtiapine 25 MG Tab PO SCH ×2 (08:09→20:18)
[2022-12-12] MEDS: busPIRone 10 MG Tab PO SCH ×2 (08:09→20:19)
[2022-12-12] MEDS: Cetirizine 10 MG Tab PO SCH ×2 (08:10→20:19)
[2022-12-12] MEDS: Folic Acid 1 MG Tab PO SCH (08:10)
[2022-12-12] MEDS: Losartan 25 MG Tab PO SCH (08:10)
[2022-12-12] MEDS: Pregabalin 75 MG Cap PO SCH ×2 (08:12→20:17)
[2022-12-12] MEDS: cefTRIAXone 2 GM in Sodium Chloride 0.9% 50 ML IV SCH (16:53)
[2022-12-12] MEDS: Montelukast 10 MG Tab PO SCH (20:18)
[2022-12-12] MEDS: Mirtazapine 15 MG Tab PO SCH (20:18)
[2022-12-12] MEDS: Tamsulosin 0.4 MG Cap.ER PO SCH (20:18)
[2022-12-12] MEDS: Pantoprazole 40 MG Tab.CR PO SCH (20:19)
[2022-12-12] MEDS: Potassium Chloride 20 MEQ Tab.ER PO SCH (20:19)
[2022-12-12] MEDS: Enoxaparin 40 MG/0.4 ML Syringe SUBCUT SCH (20:19)
[2022-12-13] MEDS: Cyclobenzaprine 10 MG Tab PO SCH ×2 (08:15→20:51)
[2022-12-13] MEDS: Pregabalin 75 MG Cap PO SCH ×2 (08:15→20:58)
[2022-12-13] MEDS: Atenolol 25 MG Tab PO SCH (08:15)
[2022-12-13] MEDS: busPIRone 10 MG Tab PO SCH ×2 (08:16→20:49)
[2022-12-13] MEDS: Losartan 25 MG Tab PO SCH (08:16)
[2022-12-13] MEDS: Lactobacillus Rhamnosus GG (Probiotic) Cap PO SCH ×2 (08:16→20:50)
[2022-12-13] MEDS: QUEtiapine 25 MG Tab PO SCH ×2 (08:16→20:52)
[2022-12-13] MEDS: Celecoxib 100 MG Cap PO SCH ×2 (08:16→20:58)
[2022-12-13] MEDS: Cetirizine 10 MG Tab PO SCH ×2 (08:16→20:52)
[2022-12-13] MEDS: Folic Acid 1 MG Tab PO SCH (08:16)
[2022-12-13] MEDS: [UNRECOGNIZED DRUG - OTHER] PO SCH (08:17)
[2022-12-13 10:28] LABS: BASOPHILS ABSOLUTE AUTO 0.04 K/uL (0.00-0.10); BASOPHILS PERCENT AUTO 0.6 % (0.1-1.3); EOSINOPHILS ABSOLUTE AUTO 0.13 K/uL (0.00-0.40); EOSINOPHILS PERCENT AUTO 1.8 % (0.0-5.4); HEMATOCRIT 44.5 % (38.4-49.7); HEMOGLOBIN 15.2 g/dL (12.9-16.9); IMMATURE GRAN ABSOLUTE AUTO 0.06 K/uL (0.00-0.23); IMMATURE GRAN PERCENT AUTO 0.8 % (0.0-0.7); LYMPHOCYTES ABSOLUTE AUTO 1.69 K/uL (0.8-3.3); LYMPHOCYTES PERCENT AUTO 23.8 % (11.4-47.7); MEAN CORPUSCULAR HEMOGLOBIN 30.9 pg (31.6-35.5); MEAN CORPUSCULAR HGB CONC 34.2 g/dL (31.6-35.5); MEAN CORPUSCULAR VOLUME 90.4 fL (81.4-99.0); MONOCYTES ABSOLUTE AUTO 0.64 K/uL (0.20-0.90); NEUTROPHILS ABSOLUTE AUTO 4.54 K/uL (1.0-7.6); PLATELET COUNT,PLT 235 K/uL (130-375); RED BLOOD CELL COUNT 4.92 M/uL (4.14-5.76); WHITE BLOOD CELL COUNT,WBC 7.1 K/uL (3.2-11.0)
[2022-12-13 10:42] LABS: CALCIUM 9.3 mg/dL (8.5-10.1); EST CRCL DRUG DOSING (CG) 90.23 mL/min; POTASSIUM,K 4.1 mmol/L (3.6-5.2)
[2022-12-13 10:50] LABS: ANION GAP 10.1 mmol/L (5.0-14.0)
[2022-12-13 16:11] LABS: A. PHAGOCYTOPHILUM IGG Negative (Neg:<1:64); A. PHAGOCYTOPHILUM IGM Negative (Neg:<1:20)
[2022-12-13] MEDS: cefTRIAXone 2 GM in Sodium Chloride 0.9% 50 ML IV SCH (16:33)
[2022-12-13] MEDS: Enoxaparin 40 MG/0.4 ML Syringe SUBCUT SCH (20:50)
[2022-12-13] MEDS: Tamsulosin 0.4 MG Cap.ER PO SCH (20:50)
[2022-12-13] MEDS: Mirtazapine 15 MG Tab PO SCH (20:51)
[2022-12-13] MEDS: Potassium Chloride 20 MEQ Tab.ER PO SCH (20:51)
[2022-12-13] MEDS: Pantoprazole 40 MG Tab.CR PO SCH (20:51)
[2022-12-13] MEDS: Montelukast 10 MG Tab PO SCH (20:52)
[2022-12-14] MEDS: Pregabalin 75 MG Cap PO SCH ×2 (08:28→21:06)
[2022-12-14] MEDS: busPIRone 10 MG Tab PO SCH ×2 (08:28→21:00)
[2022-12-14] MEDS: Atenolol 25 MG Tab PO SCH (08:29)
[2022-12-14] MEDS: Cyclobenzaprine 10 MG Tab PO SCH ×2 (08:29→21:01)
[2022-12-14] MEDS: Celecoxib 100 MG Cap PO SCH ×2 (08:29→21:06)
[2022-12-14] MEDS: QUEtiapine 25 MG Tab PO SCH ×2 (08:29→21:01)
[2022-12-14] MEDS: Cetirizine 10 MG Tab PO SCH ×2 (08:30→21:02)
[2022-12-14] MEDS: Lactobacillus Rhamnosus GG (Probiotic) Cap PO SCH ×2 (08:30→21:00)
[2022-12-14] MEDS: Folic Acid 1 MG Tab PO SCH (08:30)
[2022-12-14] MEDS: [UNRECOGNIZED DRUG - OTHER] PO SCH (08:30)
[2022-12-14] MEDS: Losartan 25 MG Tab PO SCH (08:30)
[2022-12-14] MEDS: cefTRIAXone 2 GM in Sodium Chloride 0.9% 50 ML IV SCH (16:58)
[2022-12-14] MEDS: oxyCODONE 5 MG Tab PO PRN (19:28)
[2022-12-14] MEDS: Montelukast 10 MG Tab PO SCH (21:00)
[2022-12-14] MEDS: Mirtazapine 15 MG Tab PO SCH (21:00)
[2022-12-14] MEDS: Potassium Chloride 20 MEQ Tab.ER PO SCH (21:00)
[2022-12-14] MEDS: Enoxaparin 40 MG/0.4 ML Syringe SUBCUT SCH (21:01)
[2022-12-14] MEDS: Pantoprazole 40 MG Tab.CR PO SCH (21:01)
[2022-12-14] MEDS: Tamsulosin 0.4 MG Cap.ER PO SCH (21:01)
[2022-12-14] MEDS: Acetaminophen 325 MG Tab PO PRN (21:06)
[2022-12-15] MEDS: oxyCODONE 5 MG Tab PO PRN ×2 (05:44→19:14)
[2022-12-15] MEDS: Atenolol 25 MG Tab PO SCH (08:56)
[2022-12-15] MEDS: Losartan 25 MG Tab PO SCH (08:56)
[2022-12-15] MEDS: Lactobacillus Rhamnosus GG (Probiotic) Cap PO SCH ×2 (08:57→21:07)
[2022-12-15] MEDS: QUEtiapine 25 MG Tab PO SCH ×2 (08:57→21:08)
[2022-12-15] MEDS: busPIRone 10 MG Tab PO SCH ×2 (08:57→21:08)
[2022-12-15] MEDS: Celecoxib 100 MG Cap PO SCH ×2 (08:57→21:08)
[2022-12-15] MEDS: Pregabalin 75 MG Cap PO SCH ×2 (08:57→21:07)
[2022-12-15] MEDS: Cetirizine 10 MG Tab PO SCH ×2 (08:57→21:07)
[2022-12-15] MEDS: Folic Acid 1 MG Tab PO SCH (08:57)
[2022-12-15] MEDS: [UNRECOGNIZED DRUG - OTHER] PO SCH (08:58)
[2022-12-15] MEDS: Cyclobenzaprine 10 MG Tab PO SCH ×2 (08:58→21:08)
[2022-12-15] MEDS ORDERED: cefTRIAXone 2 GM in Sodium Chloride 0.9% 50 ML IV SCH (16:00)
[2022-12-15] MEDS: Pantoprazole 40 MG Tab.CR PO SCH (21:07)
[2022-12-15] MEDS: Potassium Chloride 20 MEQ Tab.ER PO SCH (21:08)
[2022-12-15] MEDS: Tamsulosin 0.4 MG Cap.ER PO SCH (21:08)
[2022-12-15] MEDS: Enoxaparin 40 MG/0.4 ML Syringe SUBCUT SCH (21:08)
[2022-12-15] MEDS: Montelukast 10 MG Tab PO SCH (21:08)
[2022-12-15] MEDS: Mirtazapine 15 MG Tab PO SCH (21:08)
[2022-12-16] MEDS: busPIRone 10 MG Tab PO SCH (08:00)
[2022-12-16] MEDS: Celecoxib 100 MG Cap PO SCH (08:01)
[2022-12-16] MEDS: Lactobacillus Rhamnosus GG (Probiotic) Cap PO SCH (08:02)
[2022-12-16] MEDS: Cyclobenzaprine 10 MG Tab PO SCH (08:03)
[2022-12-16] MEDS: Folic Acid 1 MG Tab PO SCH (08:03)
[2022-12-16] MEDS: Pregabalin 75 MG Cap PO SCH (08:04)
[2022-12-16] MEDS: Cetirizine 10 MG Tab PO SCH (08:05)
[2022-12-16] MEDS: QUEtiapine 25 MG Tab PO SCH (08:05)
[2022-12-16] MEDS: [UNRECOGNIZED DRUG - OTHER] PO SCH (08:09)
[2022-12-16] MEDS: Atenolol 25 MG Tab PO SCH (08:09)
[2022-12-16] MEDS: Losartan 25 MG Tab PO SCH (08:09)
[2022-12-16] MEDS: oxyCODONE 5 MG Tab PO PRN ×2 (08:13→12:56)
[2022-12-16] MEDS ORDERED: cefTRIAXone 2 GM in Sodium Chloride 0.9% 50 ML IV SCH (13:00)
[2022-12-16 15:12] LABS: BABESIA MICROTI IGG <1:10 (Neg:<1:10); BABESIA MICROTI IGM <1:10 (Neg:<1:10)
[2022-12-16 15:12] LABS: LYME IGG LB INTERP. Positive (.); LYME IGM LB INTERP. Positive (.); P18 AB. IGG Present (.); P23 AB. IGG Present (.); P23 AB. IGM Present (.); P28 AB. IGG Absent (.); P30 AB. IGG Absent (.); P39 AB. IGG Present (.); P39 AB. IGM Present (.); P41 AB. IGG Present (.); P41 AB. IGM Present (.); P45 AB. IGG Absent (.); P58 AB. IGG Present (.); P66 AB. IGG Absent (.); P93 AB. IGG Absent (.)
== END 2022-12-16 14:25 | disposition home health service (06) | DRG 867 ==
LOC: JP.ED 10:43 → JP.MS 19:02 → OBSVTOIN 12-06 08:30 → JP.MS 12-13 19:23
PROVIDERS: ADMIT Internal Medicine; ATTEND Internal Medicine
PROC: 009U3ZX Drainage of Spinal Canal, Percutaneous Approach, Diagnostic (ICD-10-PCS; principal; 2022-12-06)
PROC: 02HV33Z Insertion of Infusion Device into Superior Vena Cava, Percutaneous Approach (ICD-10-PCS; 2022-12-06)
PROC: 0T9B70Z Drainage of Bladder with Drainage Device, Via Natural or Artificial Opening (ICD-10-PCS; 2022-12-06)
PROC: 0TPB70Z Removal of Drainage Device from Bladder, Via Natural or Artificial Opening (ICD-10-PCS; 2022-12-13)
DX: A69.20 Lyme disease, unspecified (principal); G04.81 Other encephalitis and encephalomyelitis; G93.49 Other encephalopathy; G51.0 Bell's palsy; R33.9 Retention of urine, unspecified; E86.0 Dehydration; F41.9 Anxiety disorder, unspecified; I45.10 Unspecified right bundle-branch block; Z20.822 Contact with and (suspected) exposure to COVID-19; R29.6 Repeated falls; G89.29 Other chronic pain; I10 Essential (primary) hypertension; R09.02 Hypoxemia; J45.909 Unspecified asthma, uncomplicated; Z87.891 Personal history of nicotine dependence; Z87.11 Personal history of peptic ulcer disease; F03.90 Unspecified dementia, unspecified severity, without behavioral disturbance, psychotic disturbance, mood disturbance, and anxiety; Z79.899 Other long term (current) drug therapy
CPT/HCPCS: 36415 ×2; 70450 ×2; 71045 ×2; 80048; 80053; 80305; 80307; 81001; 82550; 83735; 84145; 84484; 85025; 85027; 85610; 85730; 86140; 86617 ×2; 86618 ×2; 86666 ×2; 86753 ×2; 93005; 93010; 99222; 99284; A9270 ×12; J0696; J1650; J1885; J3490 ×4; J7030 ×3; U0002; 51701; 51702; 51798; 62270; 62270-26; 70553; 71046; 71275; 72158; 72158-26; 82140; 82945; 83615; 84157; 87070; 87205; 89050; 94640; 94667; 94668; 96361; 96365; 96367; 96374; 96375; 97110-GP; 97116-GP; 97162-GP; 97165-GO; 97530-GP; 99232; 99239; 99285-25; A9579; C1751; G0378; Q9967